=== PATIENT | female | born 1960 | race Asian ===

== ENCOUNTER 2019-06-21 23:56 | Emergency (ER) | payer OTHER ==
[~2019-06-21] VITALS: Ht 154.9 cm; Wt 56.7 kg
[2019-06-22 00:06] VITALS: Ht 154.9 cm; Wt 56.7 kg
[2019-06-22 01:00] VITALS: BP 140/86
== END 2019-06-22 01:00 | disposition home or self-care (01) ==
LOC: ED 23:56
DX: J06.9 Acute upper respiratory infection, unspecified (principal); B37.9 Candidiasis, unspecified; I10 Essential (primary) hypertension; Z88.8 Allergy status to other drugs, medicaments and biological substances
CPT/HCPCS: Q0092

== ENCOUNTER 2019-06-23 23:18 | Emergency (ER) | payer OTHER ==
[~2019-06-23] VITALS: Ht 154.9 cm; Wt 56.7 kg
[2019-06-23 23:27] VITALS: Ht 154.9 cm; Wt 56.7 kg
[2019-06-24 03:44] VITALS: BP 137/88
== END 2019-06-24 03:44 | disposition home or self-care (01) ==
LOC: ED 23:18
DX: R05 Cough (principal); R51 Headache; M79.10 Myalgia, unspecified site; I10 Essential (primary) hypertension; E03.9 Hypothyroidism, unspecified; Z88.8 Allergy status to other drugs, medicaments and biological substances
CPT/HCPCS: J7613; J7644; J8540